=== PATIENT | male | born 1965 | race Caucasian/White ===

== ENCOUNTER 2021-03-30 07:14 | Day surgery (SDC) | payer BC ==
[2021-03-26 11:46] LABS: BASOPHILS # (AUTO) 0.1 X10'3 (0-0.2); BASOPHILS % (AUTO) 1.7 % (0-1); EOSINOPHILS # (AUTO) 0.4 X10'3 (0-0.9); EOSINOPHILS % (AUTO) 8.6 % (0-6); LYMPHOCYTES # (AUTO) 1.5 X10'3 (1.1-4.8); LYMPHOCYTES % (AUTO) 35.7 % (21-51); MEAN CORPUSCULAR HEMOGLOBIN 30.9 PG (27.0-31.0); MEAN CORPUSCULAR HGB CONC 34.4 g/dL (33.0-36.5); MEAN CORPUSCULAR VOLUME 89.8 FL (78-98); MONOCYTES # (AUTO) 0.3 X10'3 (0-0.9); MONOCYTES % (AUTO) 7.5 % (2-12); NEUTROPHILS # (AUTO) 1.9 X10'3 (1.8-7.7); NEUTROPHILS % (AUTO) 46.5 % (42-75); PRE OP HEMATOCRIT 40.1 % (42.0-52.0); PRE OP HEMOGLOBIN 13.8 g/dL (14.0-17.9); PRE OP PLATELET COUNT 213 X10'3 (140-440); RED BLOOD COUNT 4.47 X10'6 (4.70-6.10); RED CELL DISTRIBUTION WIDTH 13.7 % (11.5-14.5)
[2021-03-26 12:07] LABS: ALBUMIN 3.9 G/DL (3.4-5.0); ALKALINE PHOSPHATASE 62 IU/L (46-116); BLOOD UREA NITROGEN 22 MG/DL (7-18); BUN/CREATININE RATIO 21.4 (5.4-32.0); CHLORIDE 104 MMOL/L (99-107); CREATININE 1.03 MG/DL (0.60-1.10); PRE OP ANION GAP 11 (8-16); PRE OP AST 36 U/L (10-37); PRE OP BILIRUB, TOTAL 0.5 MG/DL (0.0-1.0); PRE OP GLUCOSE 140 MG/DL (70-104); PRE OP POTASSIUM 4.2 MMOL/L (3.4-5.1); PRE OP SODIUM 141 MMOL/L (135-145); TOTAL CARBON DIOXIDE 26.2 MMOL/L (24-32); TOTAL PROTEIN 7.8 G/DL (6.4-8.2); eGFR 75 ML/MIN
[2021-03-26 12:10] LABS: PRE OP ALT 86 U/L (30-65)
[~2021-03-30] VITALS: Ht 172.7 cm; Wt 128.0 kg
[~2021-03-30 07:14] MED LIST: ATOR20TA PO; BUPIVAcaine/PF 2.5mg/ml (0.25%) 10ml vial ONE; CHOL100025 PO; HYDR12.55 PO; LIDOcaine 0.5% (5mg/ml) 50ml vial ONE; LISI40TA13 PO; LORA10TA7 PO; MELO-100 PO; OMEG1CAP2 PO; VITC500T PO; ZINC50TA67 PO; ceFAZolin inj. 3,000 MG in normal saline 100ml IV soln 100 ML IV ONE; famotidine 20mg tablet PO ONE; ringers solution, lacted 1,000 ML IV SCH
[2021-03-30 07:40] VITALS: BP 139/98
[2021-03-30] MEDS ORDERED: labetalol 20mg/4ml (5mg/ml) syringe IV PRN (08:45)
[2021-03-30] MEDS ORDERED: morphine 2 MG/ML inj. syringe IV PRN (08:45)
[2021-03-30] MEDS ORDERED: hydrALAZINE 20mg/ml inj. IV PRN (08:45)
[2021-03-30] MEDS ORDERED: ondansetron/PF 4mg/2ml inj IV PRN (08:45)
[2021-03-30] MEDS ORDERED: morphine 4 MG/ML inj SYRINge IV PRN (08:45)
[2021-03-30] MEDS ORDERED: ringers solution, lacted 1,000 ML IV SCH (08:45)
[2021-03-30] MEDS ORDERED: fentaNYL/PF 50MCG/1 ML 2ML syringe IV PRN ×2 (08:45)
[2021-03-30] MEDS ORDERED: fentaNYL/PF 50MCG/1 ML 2ML syringe ONE (09:35)
[2021-03-30] MEDS ORDERED: MIDAZolam 1 MG/ML 5ML VIAL ONE (09:35)
[2021-03-30] MEDS ORDERED: ROPIVAcaine 0.5% (5mg/ml) 30ml vial ONE (10:22)
[2021-03-30 10:40] VITALS: BP 107/68
--- NOTE | 2021-03-30 10:40 | NUR ---
Received from OR via [facility], accompanied by Anesthesiologist TENISHA and report given by Anesthesiolgist. PT. ARRIVED AROUSABLE, ABLE TO ANSWER QUESTIONS. R. HAND 20 G IV INFUSING LR AT 100 ML/HR. CDI. VSS. L. HAND/WRIST WITH SPLINT CDI. PT. ON 10 L. O2 VIA FACE MASK. PT. DENIES PAIN. PALPABLE PULSES IN NON-OP EXTREMITIES. L. HAND/FINGERS WITH GOOD CAP REFILL, WARM, PINK. PT. ABLE TO MOVE HAND AND RAISE ARM. Addendum: 03/30/21 at 1107 by Mona Doyle RN Amended: Links added.
[2021-03-30] MEDS ORDERED: BUPIVAcaine/PF 2.5mg/ml (0.25%) 10ml vial ONE (10:42)
[2021-03-30 10:50] VITALS: BP 101/67
[2021-03-30 11:00] VITALS: BP 116/75
[2021-03-30 11:10] VITALS: BP 120/73
[2021-03-30 11:20] VITALS: BP 121/74
--- NOTE | 2021-03-30 11:30 | NUR ---
PT. DISCHARGED TO HOME VIA TO PRIVATE CAR WITH SPOUSE. ALL DC CRITERIA MET. DENIES PAIN. VSS. L. HAND WARM WITH GOOD CAP REFILL. R. HAND 20 G. IV REMOVED. L. HAND/WRIST DRESSING/SPLINT CDI. INSTRUCTIONS GIVEN PT STATES UNDERSTANDING. ALL QUESTIONS ANSWERED. PT. HAS PAIN MEDS AT HOME. GLASSES AND HAT TAKEN BY PT. 2 ICE BAGS GIVEN FOR RECOVERY. PT. ABLE TO DRINK 200 ML WATER W/O N/V. PT. ABLE TO AMBULATE TO . Addendum: 03/30/21 at 1136 by Mona Doyle RN Amended: Links added.
== END 2021-03-30 11:30 | disposition home or self-care (01) ==
LOC: PAS 07:14
PROVIDERS: ATTEND Orthopaedic Surgery Hand Surgery
DX: T84.098A Other mechanical complication of other internal joint prosthesis, initial encounter (principal); M72.0 Palmar fascial fibromatosis [Dupuytren]; E66.01 Morbid (severe) obesity due to excess calories; Z68.41 Body mass index [BMI] 40.0-44.9, adult; I10 Essential (primary) hypertension; F17.220 Nicotine dependence, chewing tobacco, uncomplicated; Z90.49 Acquired absence of other specified parts of digestive tract; Z72.89 Other problems related to lifestyle; Z79.899 Other long term (current) drug therapy; Z98.890 Other specified postprocedural states; Z87.442 Personal history of urinary calculi; G89.18 Other acute postprocedural pain; Y83.8 Other surgical procedures as the cause of abnormal reaction of the patient, or of later complication, without mention of misadventure at the time of the procedure; Y92.89 Other specified places as the place of occurrence of the external cause
CPT/HCPCS: 25445; 26121; 36415; 64450; 80053; 82948; 85025; 93005; C1762; J0690; J2001; J2250; J3010; J3490; J7120; 76942; A4215; A4618; A7000; J2795